=== PATIENT | female | born 1965 | race African-American/Black ===

== ENCOUNTER 2020-05-21 09:45 | Outpatient (CLI) | payer MEDICARE, MEDICAID, SELFPAY ==
--- NOTE | 2020-05-21 | EST_ITS ---
Patient Info Name: Anai Murphy Age: 55 years : 1965 Gender: Female Ht: 64 in Wt: 199 lbs BSA: 2.06 m2 Exam Date: 05/21/2020 11:30 AM Exam Location: [facility] Stress Patient Status: Outpatient Admit Date: 05/21/2020 Staff Ordering Physician: Anna Ly MD Attending Provider: Anna Ly MD Exercise Technologist: Jeremiah Zhang RDCS, RT Exercise Physician: Evaristo Nathan DO Exam Type: CA stress tegan w NM Study Info A regadenoson stress test was performed. Summary 1. 1. Negative Lexiscan stress test for ischemic ST changes by ECG criteria. 2. 2. Stable hemodynamics throughout the test. 3. 3. Nuclear scan to follow and will be reported separately. Please correlate with it. 4. 4. Patient informed of the above results. Protocol: Lexiscan Stress ECG Details Stage: REST Duration (min): 3 min : 15 sec HR (bpm): 87 SBP (mmHg): 119 DBP (mmHg): 73 Stage: REST Duration (min): 9 min : 20 sec HR (bpm): 87 SBP (mmHg): 119 DBP (mmHg): 73 Stage: STAGE 1 Duration (min): 1 min : 0 sec HR (bpm): 111 SBP (mmHg): 119 DBP (mmHg): 73 Stage: RECOVERY Duration (min): 1 min : 0 sec HR (bpm): 119 SBP (mmHg): 119 DBP (mmHg): 73 Stage: RECOVERY Duration (min): 2 min : 0 sec HR (bpm): 117 SBP (mmHg): 119 DBP (mmHg): 73 Stage: RECOVERY Duration (min): 3 min : 0 sec HR (bpm): 116 SBP (mmHg): 126 DBP (mmHg): 78 Stage: RECOVERY Duration (min): 4 min : 0 sec HR (bpm): --- SBP (mmHg): 126 DBP (mmHg): 78 Stage: RECOVERY Duration (min): 4 min : 23 sec HR (bpm): --- SBP (mmHg): 126 DBP (mmHg): 78 Rest HR: 87 bpm Peak HR: 119 bpm Rest Sys BP: 119 mmHg Peak Sys BP: 126 mmHg Max Pred HR: 167 bpm % Max Pred HR: 71 % Target HR: 142 bpm Max RPP: 14,994 bpm*mmHg Termination Reason: Completed protocol Cardiac Symptoms: Shortness of breath Total Time: 1 min : 0 sec Rest Henry BP: 73 mmHg Peak Henry BP: 78 mmHg Total Dose: 0.4 mg Resting ECG Sinus rhythm. Stress ECG No ST changes. Arrhythmias None. Report Signatures
--- NOTE | ~2020-05-21 | NM_ITS ---
EXAMINATION: NM tegan stress w perfusion DATE: 05/21/2020 12:36 INDICATION: Abnormal electrocardiogram. TECHNIQUE: Rest images were obtained following intravenous administration of 8.2 mCi Tc99m tetrofosmi n (Myoview). The patient was infused intravenously with Lexiscan (regadenoson). Then, 26 mCi Tc99m te trofosmin (Myoview) was administered intravenously, and stress images were obtained. Data was reconst ructed into short axis and horizontal and vertical long axis SPECT images. Gated SPECT images were al so obtained. COMPARISON: None. FINDINGS: There is no definite reversible or fixed perfusion abnormality to suggest ischemia or infar ction. There is no segmental wall motion abnormality. Left ventricular ejection fraction measures > 70%. IMPRESSION: 1. No definite ischemia or infarct. 2. Normal left ventricular ejection fraction measuring >70%. Reviewed, dictated and finalized at location A.
[2020-05-21 10:39] LABS: Hematocrit 37.8 % (37.0-47.0); Hemoglobin 12.6 g/dL (12.0-15.0); Mean Corpuscular HGB Conc 33.3 g/dl (32-36); Mean Corpuscular Hemoglobin 28.6 pg (26-34); Mean Corpuscular Volume 85.9 fl (80-100); Mean Platelet Volume 11.3 fl (7.4-10.4); Platelet Count Result 236 k/mm3 (150-375); Red Cell Distribution Width 16.1 % (11.5-14.5); White Blood Count 6.2 K/mm3 (4.5-10.0)
[2020-05-21 11:12] LABS: Alanine Aminotransferase 123 U/L (4-35); Albumin Level 4.4 g/dL (3.5-5.1); Alkaline Phosphatase 69 U/L (38-126); Aspartate Amino Transferase 136 U/L (14-36); Bilirubin,Total 0.5 mg/dL (0.2-1.3); Blood Urea Nitrogen 14 mg/dL (7-17); Calcium 8.8 mg/dL (8.4-10.2); Carbon Dioxide 26 mmol/L (22-30); Chloride 102 mmol/L (98-107); Estimated Glomerular Filt Rate > 60; Glucose 77 mg/dL (65-105); Sodium 137 mmol/L (137-145)
[2020-05-21 11:29] LABS: Hemoglobin A1C 5.2 % (<5.7)
[2020-05-21 11:41] LABS: Thyroid Stimulating Hormone Reflex 0.946 uIU/mL (0.465-4.68)
== END 2020-05-21 09:46 | disposition home or self-care (01) ==
PROVIDERS: PCP Family Medicine; Visit Provider Family Medicine
DX: E03.9 Hypothyroidism, unspecified (principal); E78.5 Hyperlipidemia, unspecified; I10 Essential (primary) hypertension; R73.03 Prediabetes; Z01.818 Encounter for other preprocedural examination; R94.31 Abnormal electrocardiogram [ECG] [EKG]
CPT/HCPCS: 36415; 78452; 80053; 83036; 84443; 85027; 93017; A9502; J2785

== ENCOUNTER 2021-04-08 08:42 | Outpatient (CLI) | payer MEDICARE, MEDICAID, SELFPAY ==
--- NOTE | ~2021-04-08 | US_ITS ---
EXAMINATION: US abdomen complete DATE: 04/08/2021 09:33 INDICATION: Right upper quadrant pain TECHNIQUE: Multiple grayscale and Doppler ultrasound images of the abdomen were obtained. COMPARISON: None available FINDINGS: The head and body of the pancreas are normal. The pancreatic tail is obscured by bowel gas. The liver is normal with normal echogenicity and echotexture. No surface nodularity. Normal hepatope teddy flow in the main portal vein. The gallbladder is normal with no abnormal wall thickening, pericho lecystic fluid or stones. The normal common bile duct measures 3 mm. There was no sonographic Zhang sign. The visualized portions of the aorta and inferior vena cava are normal. The right kidney measures 10.6 x 4.7 x 4.1 cm. There is a questionable 2.8 cm mass of the mid kidney extending into hilar fat. The left kidney measures 10.0 x 5.3 x 5.3 cm. The kidneys demonstrate merry l parenchymal echogenicity. There is no hydronephrosis. The spleen is normal in appearance and measur es 8.8 cm. IMPRESSION: 1. No sonographic correlate for the patient's symptoms. 2. Possible lesion of the right mid kidney. Recommend further evaluation by CT or MRI without and wit h contrast. Reviewed, dictated and finalized at location A. IMPRESSION: 1. No sonographic correlate for the patient's symptoms. 2. Possible lesion of the right mid kidney. Recommend further evaluation by CT or MRI without and with contrast.
== END 2021-04-08 08:43 | disposition home or self-care (01) ==
PROVIDERS: PCP Family Medicine; Visit Provider Nurse Practitioner
DX: R10.11 Right upper quadrant pain (principal)
CPT/HCPCS: 76700

== ENCOUNTER 2021-04-21 13:06 | Outpatient (CLI) | payer MEDICARE, MEDICAID, SELFPAY ==
--- NOTE | ~2021-04-21 | CT_ITS ---
EXAMINATION: CT abdomen pelvis wo/w con DATE: 04/21/2021 13:59 INDICATION: Possible right renal mass seen on recent ultrasound. TECHNIQUE: Computed tomography (CT) of the abdomen and pelvis was performed without and with 100 cc O mnipaque 350 intravenous contrast. The dose-length product was 1479.07 mGy-cm. Automated exposure con trol and iterative reconstruction technique were employed. COMPARISON: Ultrasound dated 04/08/2021 FINDINGS: No renal stones or hydronephrosis. Small periumbilical hernia containing fat. Lung bases ar e unremarkable. Cardiomegaly. No significant pleural or pericardial effusion. There is an 11 mm pleur al-based left lower lobe nodule. Fatty infiltration of the liver. The spleen, pancreas, adrenal glands and left kidney are unremarkabl e. There is a 1 cm hypovascular mass of the right kidney, too small to adequately characterize, altho ugh statistically likely a benign cyst. Gallbladder is present. Nonobstructive bowel gas pattern. Nor mal appendix. Mild lymphadenopathy in the left groin with largest lymph node measuring 1.7 cm. No sig nificant vascular abnormality. No acute osseous abnormality. IMPRESSION: 1. Pleural-based left lower lobe nodule measuring 11 mm. Differential diagnosis includes infectious/i nflammatory etiologies versus malignancy. Recommend follow-up low dose CT chest in 3 months or PET/CT examination. 2: Small 1 cm hypovascular lesion of the right kidney, most likely benign. 3: Small fat-containing periumbilical hernia. 4: Hepatic steatosis. 5: Mild left inguinal lymphadenopathy, nonspecific. Reviewed, dictated and finalized at location B. IMPRESSION: 1. Pleural-based left lower lobe nodule measuring 11 mm. Differential diagnosis includes infectious/inflammatory etiologies versus malignancy. Recommend follo w-up low dose CT chest in 3 months or PET/CT examination. 2: Small 1 cm hypovascular lesion of the right kidney, most likely benign. 3: Small fat-containing periumbilical hernia. 4: Hepatic steatosis. 5: Mild left inguinal lymphadenopathy, nonspecific.
[2021-04-21 13:44] LABS: Estimated Glomerular Filt Rate > 60
== END 2021-04-21 13:07 | disposition home or self-care (01) ==
PROVIDERS: PCP Family Medicine; Visit Provider Nurse Practitioner
DX: R93.5 Abnormal findings on diagnostic imaging of other abdominal regions, including retroperitoneum (principal); K42.9 Umbilical hernia without obstruction or gangrene; K76.0 Fatty (change of) liver, not elsewhere classified; R91.8 Other nonspecific abnormal finding of lung field
CPT/HCPCS: 74178; Q9967

== ENCOUNTER 2024-06-28 11:08 | Outpatient (CLI) | payer OTHER, MEDICAID, SELFPAY ==
--- NOTE | ~2024-06-28 | XR_ITS ---
3 VIEWS LUMBAR SPINE Ordering provider: Travis Park MD History: . RADICULOPATHY, CHRONIC PAIN . Comparison: None. FINDINGS: VERTEBRAL BODIES: No visible fracture or subluxation. Degenerative changes of the spine. DISK SPACES: Normal. Facet joint disease at the level of L5-S1. SOFT TISSUES: Normal. IMPRESSION: No acute osseous abnormality lumbar spine. Reviewed, dictated and finalized at location A.
--- NOTE | ~2024-06-28 | XR_ITS ---
3 VIEWS THORACIC SPINE Ordering provider: Travis Park MD History: . RADICULOPATHY, CHRONIC PAIN . Comparison: None. FINDINGS: VERTEBRAL BODIES: Normal height and alignment. No visible fracture or subluxation. Degenerative roland es of the spine DISK SPACES: Normal. SOFT TISSUES: Normal. IMPRESSION: No acute osseous abnormality of the thoracic spine. Reviewed, dictated and finalized at location A.
== END 2024-06-28 11:09 | disposition home or self-care (01) ==
LOC: ANHIMG 11:18
PROVIDERS: Visit Provider Pain Medicine Interventional Pain Medicine
DX: M47.24 Other spondylosis with radiculopathy, thoracic region (principal); M47.25 Other spondylosis with radiculopathy, thoracolumbar region
CPT/HCPCS: 72072; 72100